=== PATIENT | male | born 1970 | race Hispanic/Latino ===

== ENCOUNTER 2018-10-04 06:07 | Day surgery (SDC) | payer BC ==
[2018-10-04] MEDS ORDERED: ECOTRIN PO ONE (06:45)
[2018-10-04] MEDS ORDERED: NACL 0.9% 500 ML 500 ML IV SCH (07:00)
[2018-10-04 07:29] LABS: Basophils % (Auto) 0.8 % (0.0-1.8); Eosinophils # (Auto) 0.2 K/mm3 (0.0-0.4); Eosinophils % (Auto) 3.5 % (0.0-4.3); Lymphocytes # (Auto) 2.7 K/mm3 (1.2-5.4); Lymphocytes % (Auto) 44.9 % (13.4-35.0); Mean Corpuscular HGB Conc 34 % (32-34); Mean Corpuscular Volume 87 fl (84-94); Monocytes # (Auto) 0.5 K/mm3 (0.0-0.8); Monocytes % (Auto) 8.8 % (0.0-7.3); Platelet Count 229 K/mm3 (140-440); Red Blood Count 4.69 M/mm3 (3.65-5.03); Red Cell Distribution Width 13.1 % (13.2-15.2)
[2018-10-04 07:41] LABS: INR 1.07 (0.87-1.13); Partial Thromboplastin Time 30.4 Sec. (24.2-36.6)
[2018-10-04 07:44] LABS: BUN/Creatinine Ratio 16; Blood Urea Nitrogen 16 mg/dL (9-20); Calcium 9.1 mg/dL (8.4-10.2); Hemolysis Index 4
[2018-10-04] MEDS ORDERED: XYLOCAINE 2% INFILTRATI ONE (08:34)
[2018-10-04] MEDS ORDERED: HEPARIN/NS 5000 UNIT/500ML(CATH LAB) 1,000 ML IR ONE (08:34)
[2018-10-04] MEDS ORDERED: HEPARIN 10,000 UNITS/10 ML ONE (08:34)
[2018-10-04] MEDS ORDERED: VERSED ONE (08:34)
[2018-10-04] MEDS ORDERED: SUBLIMAZE ONE (08:34)
[2018-10-04] MEDS ORDERED: CALAN ONE (08:34)
--- NOTE | 2018-10-04 10:54 | Cardiac Catherization Report ---
CARDIAC CATHETERIZATION REPORT INDICATION FOR PROCEDURE: The patient is a 48-year-old white gentleman with atypical chest pains, abnormal stress nuclear imaging and recently diagnosed diabetes mellitus, who was scheduled for cardiac catheterization for definite diagnosis and treatment. The patient had cardiac catheterization done 10 years ago which showed minimal disease. Presently because of the above findings, the patient is scheduled for cardiac catheterization. The patient is aware of the procedure, potential complications and the alternatives of therapy available. DESCRIPTION OF PROCEDURE: The patient was brought to the catheterization laboratory in a fasting condition. Right wrist area and forearm thoroughly cleansed with Betadine solution. Sterile drapes were applied. Local anesthesia was achieved using 2% Xylocaine. The patient was evaluated for moderate sedation and was felt to be appropriate candidate for moderate sedation. The patient received IV fentanyl and Versed. Subsequently, local anesthesia was given in the right wrist area and right radial artery puncture was made using 21-gauge arterial puncture needle. Subsequently, 5-Indonesian slender sheath was introduced. The patient received 3000 units of intravenous heparin and 5 mg of intra-arterial verapamil. Subsequently, 6-Indonesian multipurpose catheter was used for obtaining the left ventriculogram done in PIPER projection using hand injection followed by angiograms of the right coronary artery in multiple views and left coronary angiograms in multiple views. At the end of the procedure, catheter and sheath were removed and good hemostasis was achieved with radial band. No untoward complications were noted. The patient was transferred to the room in a stable condition. The patient was monitored for moderate sedation throughout the procedure with EKG monitoring, hemodynamic monitoring and pulse oximetry. Moderate sedation started at 09:56 AM ,Moderate sedation ended at 10:10 a.m. Following findings were noted: HEMODYNAMICS: 1. Opening aortic pressure 120/66, left ventricular pressure 120/21, no gradient across the aortic valve. Estimated ejection fraction 50-55%. 2. Left ventriculogram done in PIPER projection showed normal sized left ventricle with normal contractility. End-diastolic and end-systolic volumes are normal. No significant mitral regurgitation noted; however, it is to be noted mitral regurgitation cannot be evaluated because of the limited amount of dye injected. 3. Right coronary artery dominant vessel, arises normally from right coronary cusp, angiographically smooth and normal. 4. Left coronary artery arises normally from left coronary cusp. Left main is smooth and normal. LAD, which curves around the apex and its branch are angiographically smooth and normal. Ramus branch, which is large shows very minimal less than 10% smooth lesion in the proximal part. Circumflex artery relatively small vessel, angiographically smooth and normal. FINAL IMPRESSION: 1. Normal sized left ventricle with normal contractility; end-diastolic pressure, upper limits of normal to mildly increased. 2. Essentially normal coronary anatomy with very minimal disease in the large ramus branch. At this time, the patient does not have any significant coronary artery disease to explain his abnormalities on the nuclear imaging. Considering that we will continue present risk factor modification. The patient is asymptomatic. The patient was explained of the findings. He understands. JOB# [id number] JOEL/MARISA DELA CRUZ
--- NOTE | 2018-10-04 12:43 | Short Stay Summary ---
Short Stay Documentation Date of service: 10/04/18 - History H&P: obtained from office - Allergies and Medications Current Medications: Allergies Penicillins Adverse Reaction (Unverified 10/04/18 06:07) Rash Home Medications Medication Instructions Recorded Confirmed Last Taken Type metFORMIN XR [Glucophage XR] 500 mg PO DAILY 10/04/18 10/04/18 1 Day Ago History ~10/03/18 Active Medications Sodium Chloride (Nacl 0.9% 500 Ml) 500 mls @ 50 mls/hr IV DIRECT AMY Stop: 10/04/18 16:59 Last Admin: 10/04/18 08:04 Dose: 50 mls/hr Documented by: - Brief post op/procedure progress note Date of procedure: 10/04/18 Pre-op diagnosis: cp; abnormal stress test Post-op diagnosis: same Procedure: LHC - see dictated cath report Anesthesia: local Estimated blood loss: none Condition: stable - Disposition Condition at discharge: Good Disposition: [id number] TO HOME OR SELFCARE - Discharge Diagnoses (1) Mild CAD Status: Chronic (2) Diabetes Status: Chronic Short Stay Discharge Plan Activity: advance as tolerated Diet: diabetic Wound: open to air, keep clean and dry Follow up with: YAN CARREON CHAIN PERSON [Other] - 7 Days
[2018-10-04 12:54] VITALS: BP 119/73
== END 2018-10-04 13:30 | disposition home or self-care (01) ==
LOC: CATHLABREC 06:07
PROVIDERS: ATTEND Internal Medicine
DX: I25.10 Atherosclerotic heart disease of native coronary artery without angina pectoris (principal); E11.9 Type 2 diabetes mellitus without complications; J45.909 Unspecified asthma, uncomplicated; G47.30 Sleep apnea, unspecified; Z98.890 Other specified postprocedural states; Z83.3 Family history of diabetes mellitus; Z81.1 Family history of alcohol abuse and dependence; Z82.5 Family history of asthma and other chronic lower respiratory diseases; Z82.61 Family history of arthritis; Z88.0 Allergy status to penicillin; Z79.84 Long term (current) use of oral hypoglycemic drugs
CPT/HCPCS: 36415; 80048; 85025; 85610; 85730; 93005; 93010; 93458; 99156; C1894; J1644; J2250; J3010; J7040; Q9967